=== PATIENT | female | born 1970 | race Caucasian/White ===

== ENCOUNTER 2017-12-21 16:11 | Outpatient (CLI) | payer BC ==
--- NOTE | 2017-12-21 16:28 | RAD ---
LEFT KNEE FOUR VIEWS: History: Fall two months ago. Pain. Comparison: None. FINDINGS: There is mild to moderate degenerative in the medial compartment. No joint effusion. No fracture or m alalignment. 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 POS: [facility]
== END 2017-12-21 16:12 | disposition home or self-care (01) ==
LOC: MADRAD 16:11
PROVIDERS: ATTEND Family Medicine
DX: M25.562 Pain in left knee (principal); M17.12 Unilateral primary osteoarthritis, left knee